=== PATIENT | female | born 1945 | race Caucasian/White ===

== ENCOUNTER → 2018-12-22 14:02 | Outpatient (CLI) | payer MEDICARE, SELFPAY ==
[2018-12-22 15:21] LABS: BUN Creatinine Ratio 23.8 (6-22); Blood Urea Nitrogen 19 mg/dL (7-17); Calcium 10.4 mg/dL (8.4-10.2); Carbon Dioxide 24 mmol/L (22-32); Chloride 104 mmol/L (98-107); Estimated Glomerular Filt Rate > 60.0 mL/min (>60); Glucose 84 mg/dL (80-110); HEMOLYSIS < 15 (0-50); Potassium 4.3 mmol/L (3.4-5.1); Sodium 138 mmol/L (137-145)
== END ==
PROVIDERS: Visit Provider Student in an Organized Health Care Education/Training Program
DX: I10 Essential (primary) hypertension (principal); E66.9 Obesity, unspecified
CPT/HCPCS: 36415; 80048

== ENCOUNTER 2019-02-14 13:46 | Day surgery (SDC) | payer MEDICARE, SELFPAY ==
[2019-02-14] VITALS (8 sets, daily range): BP systolic 117–131; BP diastolic 66–82; PULSE 71–88; RESP 14–20; TEMP 36.2–36.4; O2SAT 93–99; BMI 29.0
--- NOTE | 2019-02-14 | PATH_ITS ---
[facility] Accession Number: [id number] . 01 Material submitted: . PART A: gastrointestinal site - GASTRIC BIOPSY PART B: gastrointestinal site - FUNDAL POLYP X2 PART C: esophagus - ESOPHAGUS Z-LINE . 01 Clinical history: . A: R/O H.PYLORI C: EVALUATE FOR TORRES'S ESOPHAGUS . 02 Diagnosis: A. Stomach, Biopsy: Gastric body mucosa with mild chronic gastritis. Negative for Helicobacter organisms by immunohistochemistry. Negative for intestinal metaplasia, dysplasia or malignancy. . B. Gastric Polyps, Biopsies: Fundic gland polyp x1. Hyperplastic gastric polyp x1. Negative for intestinal metaplasia, dysplasia or malignancy. Additional step-sections examined. . C. Esophagus, Z Line, Biopsy: Squamocolumnar junctional mucosa with specialized intestinal metaplasia; please see comment. Negative for dysplasia or malignancy. [facility]/02/16/2019 . 02 Comment: Part C) The finding of specialized intestinal metaplasia in the Z line biopsy would support a clinical impression of Torres's esophagus in the appropriate endoscopic setting. . 02 Electronically signed: . Nahun Christianson MD, PhD, Pathologist NPI- [id number] . 01 Gross description: . (A) Received in formalin, labeled gastric biopsy R/O H. pylori, are multiple fragments of tello-pierce tissue (0.8 x 0.5 x 0.1 cm in aggregate). Filtered and entirely submitted in cassette A1. (B) Received in formalin, labeled fundal polyp x2, are three fragments of tello-pierce tissue (0.8 x 0.1 x less than 0.1 cm in aggregate). Entirely submitted in cassette B1. (C) Received in formalin, labeled evaluate for Torres's esophagus Z-line, are two fragments of tello-white tissue (0.2 x 0.1 x less than 0.1 cm and 0.3 x 0.3 x 0.1 cm). Entirely submitted in cassette C1. ([id number]) /[facility] . 02 Microscopic: . Part A) An immunohistochemical stain is performed to evaluate for Helicobacter organisms and is negative. A control stain shows appropriate reactivity. . * This test was developed and its performance characteristics determined by [facility]. It has not been cleared or approved by the U.S. Food and Drug Administration. The FDA has determined that such clearance or approval is not necessary. This test is used for clinical purposes. It should not be regarded as investigational or for research. . 02 Pathologist provided ICD-10: K22.70, K29.70, K31.7 . 02 CPT . 869536, 228930, 060587, [id number] Performed at: 01 [facility] [address] [id number] MD Harrison Blank MD Phone: [phone] Performed at: 02 [facility] [address] [place], [place] [id number] MD Kamila Solorzano MD Phone: [phone]
[2019-02-14] MEDS: SODIUM CHLORIDE 0.9% 1,000 ML 200 ML IV (14:03)
--- NOTE | 2019-02-14 14:38 | PM.HP.1 ---
History of Present Illness Date Patient Seen: 02/14/19 Time Patient Seen: 14:38 Chief complaint: [id number] Narrative: Patient seen and examined Health unchanged from recent clinic note Plan for EGD for progressive GERD symptoms Biopsies to evaluate for H pylori Patient History Medical History (Updated 12/25/18 @ 12:52 by Bentley Lux MD) Actinic keratosis (Chronic) Aortic stenosis (Chronic ~1979) Eczema (Chronic) Fibromyalgia (Chronic ~2005) Foot pain (Chronic) GERD (gastroesophageal reflux disease) (Chronic ~1984) Hearing loss (Chronic ~2004) Lupus (Chronic) Osteoarthritis (Chronic) Psoriasis (Chronic) Shoulder pain (Chronic ~2015) Tinnitus (Chronic ~1989) Vision disorder (Chronic) Surgical History (Updated 12/21/18 @ 20:24 by Haley Davis) Anesthesia (Resolved) History of biopsy (Resolved ~1979) History of cataract removal with insertion of prosthetic lens (Resolved ~2015) History of rhinoplasty (Resolved ~1954) Social History (Updated 01/24/19 @ 11:16 by Ayanna Day RN) marital status: household members: spouse and family Smoking Status: Former smoker alcohol intake: current substance use type: does not use Family & Social History Social History: household members spouse,family Tobacco & Substance use: Smoking Status Former smoker alcohol intake current Meds Home Medications Medication Instructions Recorded Confirmed Type cannabidiol (CBD) 100 mg/mL oral 100 mg PO DAILY ml 01/24/19 02/14/19 History solution cholecalciferol (vitamin D3) 1,000 1,000 unit PO DAILY 01/24/19 02/14/19 History unit capsule mecobalamin (vitamin B12) 1,000 1,000 mcg SL DAILY 01/24/19 02/14/19 History mcg disintegrating tablet,sublingual mirtazapine 15 mg tablet 15 mg PO DAILY #30 tab 01/24/19 02/14/19 Rx Allergies Allergy/AdvReac Type Severity Reaction Status Date / Time codeine Allergy NAUSEA Verified 02/14/19 14:01 Exam Vital Signs (past 8 hours): - 02/14/19 14:19 Temperature 97.4 F L Pulse Rate 88 Respiratory Rate 16 Blood Pressure 131/82 Pulse Oximetry 99 Oxygen Delivery Method Room Air
[2019-02-14] MEDS: LIDOCAINE 4% SOLN 50 ML 20 ML TOP (14:45)
[2019-02-14] MEDS: TETRACAINE/BENZOCAINE/BUTAMBEN (CETACAINE) BOTTLE 1 SPRAY TOP (14:46)
--- NOTE | 2019-02-14 14:58 | SUR.OPER ---
Used alligator biopsy forceps. [id number]
[2019-02-14] MEDS: MIDAZOLAM 5 MG/5 ML VIAL IV (15:01)
[2019-02-14] MEDS: fentaNYL 250 MCG/5 ML INJ IV (15:01)
--- NOTE | 2019-02-14 15:12 | P.OP.ENDO_ITS ---
Operative Date/Time/Diagnoses Date of procedure: 02/14/19 Time of procedure: 15:06 Post-op diagnosis: same Procedure & Clinicians Study performed: EGD With biopsies Same procedure as scheduled: Yes Indications: 73-year-old female who has the progression of her GERD symptoms Surgeon: Ramirez Bey Procedure Notes SCOAP/Timeout: Completed Procedure in detail: Patient was brought to the endoscopy suite, a time-out was completed. She was sedated for the entire course of her procedure with 5 mg of midazolam and 50 mcg of fentanyl. A gastroscope was introduced through the oropharynx passed posterior to the epiglottis and into the distal esophagus without difficulty and was placed through the entirety of the esophagus into the stomach and through the pylorus. The 1st portion of the duodenum was inspected there was healthy mucosa and healthy villi without evidence of ulceration or erythema. The scope was slowly withdrawn into the stomach there was healthy route day without evidence of gastritis. Half a dozen random biopsies were daisy en from the antrum as well as ensura and gastric body to evaluate for H pylori. The scope was retroflexed there were 2 polyps within the fundus that were also biopsied. A grade 4 Hill valve was identified with type 1 paraesophageal hernia Esophageal hiatus was noted to be at 35 cm and the Z-line located at 32 cm both from the incisors There was very small tongue of gastric mucosa that appeared to cross the Z-line, this was biopsied to evaluate for Reyes's -though clinically this seems unlikely. The scope was then slowly withdrawn from the remainder of this esophagus and no additional lesions were identified. I did not see evidence of LA grade esophagitis Scope withdrawal time: na Sedation minutes: 20 Specimen(s): other (Random gastric biopsies, fundic polyps, Z-line) Complications: none Impression: 1. Grade 4 Hill valve 2. 3 cm type 1 paraesophageal hernia Plan for aftercare: Follow up in office for further discussion Follow up: as needed Disposition: PACU
== END 2019-02-14 16:13 | disposition home or self-care (01) ==
PROVIDERS: PCP Student in an Organized Health Care Education/Training Program; Visit Provider Surgery
PROC: 0DJ08ZZ Inspection of Upper Intestinal Tract, Via Natural or Artificial Opening Endoscopic (ICD-10-PCS; CPT 43235; principal; 2019-02-14 15:00)
DX: K21.0 Gastro-esophageal reflux disease with esophagitis (principal); K44.9 Diaphragmatic hernia without obstruction or gangrene; K22.70 Barrett's esophagus without dysplasia; K29.70 Gastritis, unspecified, without bleeding; K31.7 Polyp of stomach and duodenum
CPT/HCPCS: 43239; 88305; 88342; 99152; J2250; J3010

== ENCOUNTER → 2019-10-05 13:17 | Outpatient (CLI) | payer MEDICARE, SELFPAY ==
--- NOTE | 2019-10-05 13:21 | DI.ECHO.S_ITS ---
[facility] +---------+ : : [address] : : : : [id number] : : : : Phone: [phone]+ Echocardiogram Report + + :Name: RENA RIZZO Study Date: 10/05/2019 Height: 62 in : :[facility] Weight: 150 lb : : Gender: Female BSA: 1.7 m2 : :: 1945 Age: 74 yrs BP: 142/88 mmHg: :Reason For Study: AORTIC STENOSIS : : Performed By: Marialuisa Li : :Referring: ELLA CHARLTON : + + Interpretation Summary The left ventricular cavity is small. The ejection fraction is estimated to be 70-75%. There is a alhj-ht-svptuahz intracavitary dynamic obstruction. The right ventricle is normal in size and function. The aortic valve is moderately calcified. There is severely reduced leaflet mobility. The peak aortic velocity is 3.76 m/sec. The aortic valve mean gradient is 32.5 mmHg. The calculated aortic valve area is 0.83 cm2. Appears to have severe aortic stenosis (paradoxically low gradient severe aortic stenosis) There is moderate tricuspid regurgitation. The right ventricular systolic pressure is estimated to be at least 24 mmHg based on an estimated right atrial pressure of 3 mm Hg. Procedure: A two-dimensional transthoracic echocardiogram with color flow and Doppler was performed. The study quality was technically adequate. There is no prior echocardiogram noted for this patient. The patient was in normal sinus rhythm during the exam. Left Ventricle: The left ventricular cavity is small. Left ventricular wall thickness is mildly increased. The echo findings are consistent with left ventricular intracavitary obstruction. There is no thrombus. The ejection fraction is estimated to be 70-75%. The left ventricle is hyperdynamic. There are no focal wall motion abnormalities. MV E/A: 0.81 Med Peak E' Jaime: 4.8 cm/sec E/E' med: 19.6. Right Ventricle: The right ventricle is normal in size and function. Atria: Both atria are normal in size. There is no Doppler evidence for an interatrial shunt. Mitral Valve: There is moderate mitral annular calcification. The mitral valve leaflets are mildly calcified. The mitral valve chordae are thickened and/or calcified. There is some restriction of posterior mitral leaflet without any significant mitral stenosis. No significant mitral valve stenosis. There is mild mitral regurgitation. Aortic Valve: The aortic valve is trileaflet. The aortic valve is moderately calcified. There is severely reduced leaflet mobility. The peak aortic velocity is 3.76 m/sec. The aortic valve mean gradient is 32.5 mmHg. The calculated aortic valve area is 0.83 cm2. There is trace aortic regurgitation. Tricuspid Valve: Tricuspid leaflets are thickened. There is moderate tricuspid regurgitation. The right ventricular systolic pressure is estimated to be at least 24 mmHg based on an estimated right atrial pressure of 3 mm Hg. Pulmonic Valve: The pulmonic valve is not well visualized. There is a trace or physiologic amount of pulmonic regurgitation. Great Vessels: The aortic root is normal size. The ascending aorta is normal in size. The IVC is of normal diameter and collapses greater than 50% with a sniff. This suggests a low right atrial pressure of 3 mm Hg. Pericardium/ Pleura There is no pericardial effusion. MMode/2D Measurements & Calculations LVIDd: 3.6 cm LVOT diam: 1.9 cm LVIDs: 2.4 cm Ao root diam: 2.7 cm FS: 34.4 % asc Aorta Diam: 2.8 cm EPSS: 0.34 cm Ao Arch Diam (Prox Trans): 2.6 cm IVSd: 1.0 cm LVPWd: 1.0 cm LV jolly. diameter/BSA (cm/m^2): 2.2 LV sys. diameter/BSA (cm/m^2): 1.4 LA A2 area: 15.6 cm2 RA long axis: 4.8 cm LA A4 area: 15.3 cm2 RA area: 14.4 cm2 LA length (vol): 4.9 cm RA vol: 36.9 ml LA vol: 41.5 ml RA : 21.8 ml/m2 LA vol index: 24.5 ml/m2 IVC diam: 0.90 cm RVD1 (basal): 3.3 cm TAPSE: 2.5 cm Doppler Measurements & Calculations Ao V2 max: 355.4 cm/sec LVOT Max Jaime: 107.2 cm/sec Ao V2 mean: 269.6 cm/sec LV V1 max P.6 mmHg Ao max P.8 mmHg LV V1 VTI: 21.8 cm Ao mean P.5 mmHg GILDARDO(I,D): 0.80 cm2 Ao V2 VTI: 74.6 cm GILDARDO(V,D): 0.83 cm2 sev ratio: 0.29 GILDARDO indexed to BSA (cm^2/m^2): 0.47 MV E max jaime: 95.0 cm/sec TR max jaime: 235.2 cm/sec MV A max jaime: 117.4 cm/sec TR max P.9 mmHg MV E/A: 0.81 PA V2 max: 66.7 cm/sec Med Peak E' Jaime: 4.8 cm/sec PA V2 mean: 38.8 cm/sec E/E' med: 19.6 PA mean P.75 mmHg Lat Peak E' Jaime: 3.8 cm/sec PA pr(Accel): 22.9 mmHg E/E' lat: 25.1 E/e' average: 22.3 MV dec time: 0.33 sec MV P1/2t: 95.2 msec MV P1/2t max jaime: 94.9 cm/sec SV(LVOT): 59.5 ml MVA(P1/2t): 2.3 cm2 Reading Physician:06:58 PM
== END ==
PROVIDERS: PCP Student in an Organized Health Care Education/Training Program; Referring Provider Student in an Organized Health Care Education/Training Program; Visit Provider Student in an Organized Health Care Education/Training Program
DX: I08.3 Combined rheumatic disorders of mitral, aortic and tricuspid valves (principal); R06.02 Shortness of breath
CPT/HCPCS: 93306